=== PATIENT | male | born 1965 | race Caucasian/White ===

== ENCOUNTER 2024-11-18 21:12 | Emergency (ER) | payer MEDICARE ==
[2024-11-18 22:22] LABS: #Basophils 0.1 thou/uL (0.0-0.2); #Eosinophils 0.1 thou/uL (0.0-0.7); #Lymphocytes 0.3 thou/uL (1.20-3.40); #Monocytes 0.5 thou/uL (0.11-0.59); #Neutrophils 3.4 thou/uL (1.40-6.50); %Basophils 1.5 % (0.0-1.0); %Eosinophils 1.5 % (0.0-10.0); %Lymphocytes 6.2 % (21.0-51.0); %Monocytes 12.4 % (0.0-10.0); %Neutrophils 78.4 % (42.0-75.0); Anisocytosis SLIGHT = 6-15 cells (100X) (0-5/hpf); Bicarbonate (HCO3v) 13.7 mmol/L (22.0-28.0); Burr Cells SLIGHT = 2-5 cells (100X) (0-1/hpf); CO2 Tension (PvCO2) 24.6 mmHg (42.0-51.0); Calcium, Ionized 1.03 mmol/L (1.15-1.33); Chloride 115 mmol/L (98-107); Hematocrit 34.8 % (42.0-52.0); Hemoglobin 10.9 g/dL (14.0-18.0); Hemoglobin - Calc 10.7 g/dL (14.0-18.0); MDiff Complete? YES; Mean Corpuscular Hemoglobin 30.8 pg (27.0-31.0); Mean Corpuscular Volume 98.7 fl (78.0-98.0); Platelet Adequacy Comment Appears Decreased; Platelet Count 119 10x3/uL (130-400); Potassium 4.0 mmol/L (3.5-5.1); Red Blood Cell (RBC) Count 3.53 mill/uL (4.70-6.10); Schistocytes SLIGHT = 2-5 cells (100X) (0-1/hpf); Sodium 136 mmol/L (138-145); T. Carbon Dioxide 14.5 mmol/L (22.0-28.0); White Blood Cell (WBC) Count 4.4 10x3/uL (4.8-10.8); vO2 Saturation-calc 99.8 % (60.0-85.0)
[2024-11-18 22:38] LABS: ALT (SGPT) 11 U/L (Less than 45); AST (SGOT) 33 U/L (11-34); Albumin 3.2 g/dL (3.1-4.5); Alkaline Phosphatase 228 U/L (40-110); Anion Gap 21 mmol/L (10-20); BUN (Urea Nitrogen) 89 mg/dL (8.4-25.7); Bilirubin, Total 1.2 mg/dL (0.3-1.2); Calc. Creatinine Clearance 0 mL/min (70-130); Calcium 8.9 mg/dL (7.8-10.44); Carbon Dioxide 11 mmol/L (22-29); Chloride 111 mmol/L (98-107); Glucose 119 mg/dL (70-105); Magnesium 1.4 mg/dL (1.6-2.6); Potassium 4.1 mmol/L (3.5-5.1); Sodium 139 mmol/L (136-145); Troponin I 0.238 ng/mL (< 0.028)
[2024-11-18] MEDS ORDERED: Furosemide 20 MG (2 mL) VIAL ONE (22:47)
[2024-11-19] MEDS ORDERED: Magnesium Oxide 400 MG TAB ONE ×2 (00:19→06:14)
[2024-11-19 05:56] LABS: Anion Gap 21 mmol/L (10-20); BUN (Urea Nitrogen) 96 mg/dL (8.4-25.7); Calc. Creatinine Clearance 0 mL/min (70-130); Calcium 9.1 mg/dL (7.8-10.44); Carbon Dioxide 11 mmol/L (22-29); Chloride 111 mmol/L (98-107); Glucose 125 mg/dL (70-105); Magnesium 1.5 mg/dL (1.6-2.6); Potassium 4.2 mmol/L (3.5-5.1); Sodium 139 mmol/L (136-145)
[2024-11-19 06:10] LABS: Troponin I 0.249 ng/mL (< 0.028)
[2024-11-19] MEDS ORDERED: Magnesium 2 GM/50 ML BAG (IN WATER) ONE (09:10)
[2024-11-19] MEDS ORDERED: Acetaminophen 500 MG TAB ONE (09:18)
== END 2024-11-19 13:12 | disposition short-term general hospital (02) ==
LOC: MADERS 21:12
DX: J90 Pleural effusion, not elsewhere classified (principal); I13.2 Hypertensive heart and chronic kidney disease with heart failure and with stage 5 chronic kidney disease, or end stage renal disease; I50.9 Heart failure, unspecified; E11.22 Type 2 diabetes mellitus with diabetic chronic kidney disease; N18.6 End stage renal disease; E87.20 Acidosis, unspecified; E83.40 Disorders of magnesium metabolism, unspecified; I48.91 Unspecified atrial fibrillation; E78.5 Hyperlipidemia, unspecified; E03.9 Hypothyroidism, unspecified; K21.9 Gastro-esophageal reflux disease without esophagitis
CPT/HCPCS: 36415; 71045; 80048; 80053; 82330; 82803; 83605; 83735; 83880; 84484; 85025; 85379; 87040; 93005; 96365; 96366; 96375; J1940; J3010; J3475